=== PATIENT | male | born 1965 | race Caucasian/White ===

== ENCOUNTER 2020-09-08 11:27 | Inpatient (IN) | payer BC, SELFPAY ==
--- NOTE | 2020-09-06 20:10 | NUR ---
Opening notes Pt alert, awake, no s/s distress noted. IVF infusing at ordered rate R. FA no sign of infiltration. Call light within reach. Bed low, locked, siderails up x2. To monitor.
[~2020-09-08] VITALS: Ht 175.3 cm; Wt 91.6 kg
[2020-09-08 11:27] VITALS: BP_SYST 133
--- NOTE | 2020-09-08 11:27 | NUR ---
BROUGHT BACK TO BED #1 AND TRIAGED. REPORT GIVEN TO ILIA
--- NOTE | 2020-09-08 11:35 | NUR ---
Pt came to ER with L flank pain and kidney stone. Pt was referred by urgent care rates pain 12/27. Pt resting in [facility], awaiting MD.
--- NOTE | 2020-09-08 11:50 | NUR ---
ER at bedside examining patient.
[2020-09-08] MEDS ORDERED: NACL 0.9% 1,000 ML IV ONE (12:30)
[2020-09-08] MEDS ORDERED: KETOROLAC TROMETHAMINE 30 MG VIAL IVP ONE (12:30)
[2020-09-08] MEDS ORDERED: DIPHENHYDRAMINE INJ 50 MG/ML VIAL IVP ONE (12:30)
[2020-09-08] MEDS ORDERED: fentaNYL CITRATE/PF 100 MCG/2 ML AMP IVP ONE (12:30)
[2020-09-08 12:49] LABS: BILIRUBIN,URINE NEGATIVE (NEGATIVE); BLOOD, URINE 2+ (NEGATIVE); CLARITY/URINE CLEAR (CLEAR); COLOR,URINE YELLOW (YELLOW); GLUCOSE,URINE NEGATIVE (NEGATIVE); KETONES,URINE 1+ (NEGATIVE); LEUKOCYTE ESTERASE ,URINE NEGATIVE (NEGATIVE); NITRITE, URINE NEGATIVE (NEGATIVE); PROTEIN URINE NEGATIVE (NEGATIVE); UROBILINOGEN,URINE 0.2 (0.2-1.0)
--- NOTE | 2020-09-08 13:00 | NUR ---
Pt resting in [facility], good response to medication
[2020-09-08 13:02] LABS: BASOPHILS # (AUTO) 0.1 K/uL (0.0-0.2); BASOPHILS % (AUTO) 0.6 % (0.0-2.0); EOSINOPHILS # (AUTO) 0.1 K/uL (0.0-0.4); EOSINOPHILS % (AUTO) 0.5 % (0.0-4.0); HEMATOCRIT 42.6 % (36-54); HEMOGLOBIN 14.8 g/dL (14.0-18.0); LYMPHOCYTES # (AUTO) 1.3 K/uL (1.0-5.5); LYMPHOCYTES % (AUTO) 9.3 % (20.5-51.5); MEAN CORPUSCULAR HEMOGLOBIN 31 pg (27-31); MEAN CORPUSCULAR HGB CONC 35 % (32-36); MEAN CORPUSCULAR VOLUME 91 fL (79.0-98.0); MONOCYTES % (AUTO) 6.8 % (1.7-9.3); NEUTROPHILS % (AUTO) 82.8 % (40.0-70.0); PLATELET COUNT (AUTO) 272 K/uL (130-430); RED BLOOD CELL COUNT(AUTO) 4.71 MIL/uL (4.2-6.2); RED CELL DISTRIBUTION WIDTH 13.3 % (9.0-15.0); WHITE BLOOD COUNT (AUTO) 14.5 K/uL (4.8-10.8)
[2020-09-08 13:13] LABS: BACTERIA,URINE None Seen /HPF (None Seen); WBC,URINE 0-3 /HPF (0-3)
[2020-09-08 13:30] LABS: CALCIUM 9.1 mg/dL (8.4-11.0); CREATININE 1.64 mg/dL (0.55-1.30); POTASSIUM 4.2 mmol/L (3.5-5.1)
[2020-09-08 13:35] LABS: ALBUMIN 3.6 g/dL (3.4-4.8); TOTAL BILIRUBIN 0.6 mg/dL (0.0-1.0)
--- NOTE | 2020-09-08 14:09 | NUR ---
Pt asleep, VSS
--- NOTE | 2020-09-08 15:30 | NUR ---
Admit orders received from Dr. Hurtado, pt to go to Med-surg, Charge nurse Jessica, gave bed assignment 130A, once Covid result received.
[2020-09-08] MEDS ORDERED: HYDR-3917 PO (15:39)
[2020-09-08] MEDS ORDERED: IBUP-1970 PO (15:39)
[2020-09-08] MEDS ORDERED: ONDA4TAB5 PO (15:39)
[2020-09-08] MEDS ORDERED: TAMS-11 PO (15:39)
--- NOTE | 2020-09-08 15:43 | NUR ---
patient states he is full code
[2020-09-08] MEDS ORDERED: ACETAMINOPHEN 325 MG TABLET PO PRN (15:45)
[2020-09-08] MEDS ORDERED: ONDANSETRON HCL 4 MG/2 ML VIAL IVP PRN (15:45)
[2020-09-08] MEDS ORDERED: fentaNYL CITRATE/PF 100 MCG/2 ML AMP IVP PRN (15:45)
[2020-09-08] MEDS ORDERED: METOCLOPRAMIDE HCL 10 MG/2 ML VIAL IVP PRN (15:45)
--- NOTE | 2020-09-08 15:45 | NUR ---
Medication reconciliation completed with information provided by patient. Any prior medication reconciliation on file was reviewed and corrected.
--- NOTE | 2020-09-08 15:55 | NUR ---
Belongings list completed.
--- NOTE | 2020-09-08 16:13 | NUR ---
Transfer to [facility]. IV present no sign or symptom of infiltration.
--- NOTE | 2020-09-08 16:30 | NUR ---
ADMISSION NOTE Received patient from ER via gurpreet, received report from Erica HEATON. Patient admitted with diagnosis of Renal Colic. Patient oriented to hospital routine, call light, toileting and safety-patient verbalized understanding.
[2020-09-08 16:47] VITALS: BP_SYST 145
--- NOTE | 2020-09-08 17:00 | NUR ---
CONSULT UROLOGY RENAL COLIC JOVANNI PEREZ [phone] S/W [place] OFFICE
[2020-09-08] MEDS: cefTRIAXone 1 GM IVPB PREMIX 50 ML IV SCH (17:55)
[2020-09-08] MEDS: NACL 0.9% 1,000 ML IV SCH (17:55)
--- NOTE | 2020-09-08 19:25 | NUR ---
REPORT RECEIVED FROM DAY SHIFT NURSE.
[2020-09-08 20:00] VITALS: BP_SYST 140
--- NOTE | 2020-09-08 22:35 | NUR ---
REPORT GIVEN TO NURSE DOUGLASS FOR CONTINUITY OF PT'S NURSING CARE. PT'S HOME MEDICATIONS GIVEN TO NURSE DOUGLASS TO DELIVER TO PHARMACY IN AM.
--- NOTE | 2020-09-08 22:46 | NUR ---
Rounds Report received from Baldo Temple. Pt asleep, no s/s distress noted. Call light wthin reach. Bed low, locked, siderails up x3. To monitor.
[2020-09-09 00:27] VITALS: BP_SYST 137
--- NOTE | 2020-09-09 02:00 | NUR ---
Rounds Pt asleep, easily awakens. No c/o pain. New IV bag hang at ordered rate, no s/s infiltration. Call light within reach. Safety maintained. To monitor.
[2020-09-09] MEDS: NACL 0.9% 1,000 ML IV SCH ×5 (02:07→21:31)
--- NOTE | 2020-09-09 06:00 | NUR ---
Closing notes Pt asleep, easily awakens. No c/o pain. IVF infusing at ordered rate, no s/s infiltration. Pt on full liquid diet and requested some jello and juice. Call light within reach. Safety maintained. To endorse to AM nurse.
[2020-09-09 06:31] LABS: BASOPHILS % (AUTO) 0.2 % (0.0-2.0); EOSINOPHILS # (AUTO) 0.2 K/uL (0.0-0.4); EOSINOPHILS % (AUTO) 2.1 % (0.0-4.0); HEMATOCRIT 40.1 % (36-54); HEMOGLOBIN 13.9 g/dL (14.0-18.0); LYMPHOCYTES # (AUTO) 1.5 K/uL (1.0-5.5); LYMPHOCYTES % (AUTO) 15.8 % (20.5-51.5); MEAN CORPUSCULAR HEMOGLOBIN 32 pg (27-31); MEAN CORPUSCULAR HGB CONC 35 % (32-36); MEAN CORPUSCULAR VOLUME 92 fL (79.0-98.0); MONOCYTES # (AUTO) 0.8 K/uL (0.0-1.0); MONOCYTES % (AUTO) 8.1 % (1.7-9.3); NEUTROPHILS # (AUTO) 7.2 K/uL (1.8-7.7); NEUTROPHILS % (AUTO) 73.8 % (40.0-70.0); PLATELET COUNT (AUTO) 242 K/uL (130-430); RED BLOOD CELL COUNT(AUTO) 4.38 MIL/uL (4.2-6.2); RED CELL DISTRIBUTION WIDTH 13.1 % (9.0-15.0); WHITE BLOOD COUNT (AUTO) 9.7 K/uL (4.8-10.8)
[2020-09-09 06:35] LABS: ALBUMIN 2.5 g/dL (3.4-4.8); CALCIUM 8.1 mg/dL (8.4-11.0); CREATININE 1.7 mg/dL (0.55-1.30); POTASSIUM 4.2 mmol/L (3.5-5.1); TOTAL BILIRUBIN 0.3 mg/dL (0.0-1.0)
[2020-09-09] MEDS: TAMSULOSIN HCL 0.4 MG CAP PO SCH (08:26)
[2020-09-09 12:22] VITALS: BP_SYST 152
[2020-09-09] MEDS: fentaNYL CITRATE/PF 100 MCG/2 ML AMP IVP PRN ×3 (12:24→21:30)
[2020-09-09] MEDS: cefTRIAXone 1 GM IVPB PREMIX 50 ML IV SCH (15:47)
[2020-09-09 16:05] VITALS: BP_SYST 145
[2020-09-09 20:00] VITALS: BP_SYST 136
--- NOTE | 2020-09-09 20:30 | NUR ---
Opening notes Pt AAOx4, VSS, afebrile. Pt doesn't want to sign consent for Cystoscopy at this time because he states he's waiting for the insurance. Informed pt he will need to be Nothing by mouth before surgery, pt verbalized understanding. IVF infusing at ordered rate R FA 22G no s/s infiltration. Will continue to strain urine.
--- NOTE | 2020-09-09 22:38 | NUR ---
Called MD Called and spoke w/ Dr. Parham to report Pt still c/o "squeezing" L abd pain that pt stated moved from his L. testicle and c/o not being able to sleep. Received order for Toradol 30mg IVP once and Brian. Will carry out.
--- NOTE | 2020-09-09 22:42 | NUR ---
HIGH ALERT NOTE: Called Dr. Parham back at [phone] identified within the medical roster to verify physician authenticity. Brian Watersmg.
[2020-09-09] MEDS ORDERED: KETOROLAC TROMETHAMINE 30 MG VIAL IVP ONE (22:45)
[2020-09-09] MEDS ORDERED: ZOLPIDEM TARTRATE 5 MG TABLET PO ONE (22:45)
[2020-09-09] MEDS ORDERED: KETOROLAC TROMETHAMINE 30 MG VIAL ONE (23:01)
--- NOTE | 2020-09-09 23:03 | NUR ---
Pain Pt still c/o severe pain/tenderness L. abd. Toradol 30mg IVP x1 administered. Will continue to monitor.
[2020-09-10 00:05] VITALS: BP_SYST 155
--- NOTE | 2020-09-10 03:10 | NUR ---
Rounds Pt asleep, respirations even and unlabored. IVF infusing at ordered rate. To monitor. Addendum: 09/10/20 at 0344 by Loren Xiao RN Straining urine, no stones passed or noted.
[2020-09-10] MEDS: NACL 0.9% 1,000 ML IV SCH ×2 (05:00→08:52)
--- NOTE | 2020-09-10 06:17 | NUR ---
Closing notes Pt asleep, no c/o pain. IVF infusing at ordered rate, no s/s infiltration. Call light within reach. Safety maintained. To endorse to AM nurse
--- NOTE | 2020-09-10 06:50 | NUR ---
Follow up Pt states he wants to know if insurance is approved first before signing consent this AM. Will endorse to AM nurse to f/u w/ Dr Shaffer.
--- NOTE | 2020-09-10 07:40 | NUR ---
OPENING NOTES PATIENT AAOX 4. LUNGS BILATERALLY CLEAR. ABDOMEN SOFT AND NON DISTENDED. VITALS SIGNS STABLE. AFEBRILE. HAS IV ACCESS ON THE RIGHT FOREARM #22. WITH NORMAL SALINE AT 150CC/HR INFUSING ON WELL. NO S/S OF PAIN NOR DISTRESS NOTED. BED LOW POSITION, ALARMED AND LOCKED. AMBULATORY. CALL LIGHTS WITHIN REACH. WILL CONTINUE TO MONITOR PATIENTS STATUS.
[2020-09-10 07:41] VITALS: BP_SYST 147
[2020-09-10] MEDS: TAMSULOSIN HCL 0.4 MG CAP PO SCH (08:52)
[2020-09-10 10:30] LABS: CALCIUM 8.8 mg/dL (8.4-11.0); CREATININE 1.68 mg/dL (0.55-1.30); POTASSIUM 4.4 mmol/L (3.5-5.1)
--- NOTE | 2020-09-10 10:30 | NUR ---
PAGED PAGED JOVANNI WOODY AT [phone] SPOKE WITH PADMINI.
[2020-09-10 10:31] LABS: BASOPHILS % (AUTO) 0.2 % (0.0-2.0); EOSINOPHILS # (AUTO) 0.1 K/uL (0.0-0.4); EOSINOPHILS % (AUTO) 1.2 % (0.0-4.0); HEMATOCRIT 39.2 % (36-54); HEMOGLOBIN 13.4 g/dL (14.0-18.0); LYMPHOCYTES # (AUTO) 1.3 K/uL (1.0-5.5); LYMPHOCYTES % (AUTO) 13.7 % (20.5-51.5); MEAN CORPUSCULAR HEMOGLOBIN 32 pg (27-31); MEAN CORPUSCULAR HGB CONC 34 % (32-36); MEAN CORPUSCULAR VOLUME 92 fL (79.0-98.0); MONOCYTES # (AUTO) 0.6 K/uL (0.0-1.0); MONOCYTES % (AUTO) 6.4 % (1.7-9.3); NEUTROPHILS # (AUTO) 7.5 K/uL (1.8-7.7); NEUTROPHILS % (AUTO) 78.5 % (40.0-70.0); PLATELET COUNT (AUTO) 250 K/uL (130-430); RED BLOOD CELL COUNT(AUTO) 4.26 MIL/uL (4.2-6.2); RED CELL DISTRIBUTION WIDTH 13.1 % (9.0-15.0); WHITE BLOOD COUNT (AUTO) 9.6 K/uL (4.8-10.8)
[2020-09-10 10:45] LABS: TOTAL BILIRUBIN 0.3 mg/dL (0.0-1.0)
--- NOTE | 2020-09-10 10:59 | NUR ---
consent signed dr cano made aware. possible procedure tomorrow.
[2020-09-10 12:49] VITALS: BP_SYST 150
--- NOTE | 2020-09-10 14:30 | NUR ---
RENAL ULTRASOUND DONE. AT THE BEDSIDE.
[2020-09-10 16:38] VITALS: BP_SYST 152
--- NOTE | 2020-09-10 18:00 | NUR ---
HAD NEW IV ACCESS ON THE LEFT AC #20 WITH SAME IV FLUIDS. INFORMED PATIENT NEEDS TO BE NPO POST MIDNITE FOR THE PROCEDURE.
--- NOTE | 2020-09-10 19:21 | NUR ---
ENDORSED TO RAJI HEATON.
--- NOTE | 2020-09-10 19:30 | NUR ---
OPENING NOTES PATIENT AAOX 4. HAS IV ACCESS ON THE LFA #20. WITH NORMAL SALINE AT 150CC/HR INFUSING ON WELL. NO S/S OF PAIN NOR DISTRESS NOTED. BED LOW POSITION, ALARMED AND LOCKED. AMBULATORY. CALL LIGHTS WITHIN REACH. WILL CONTINUE TO MONITOR PATIENTS STATUS.
[2020-09-10 20:03] LABS: PROTHROMBIN TIME 10.4 SECS (9.5-12.5)
--- NOTE | 2020-09-11 | NUR ---
RN ROUNDS PT VITAL SIGNS STABLE. WILL CTM
[2020-09-11] MEDS: NACL 0.9% 1,000 ML IV SCH ×4 (00:50→15:28)
[2020-09-11 01:26] VITALS: BP_SYST 129
--- NOTE | 2020-09-11 06:56 | NUR ---
CLOSING NOTES PATIENT AAOX 4. HAS IV ACCESS ON THE LFA #20. WITH NORMAL SALINE AT 150CC/HR INFUSING ON WELL. NO S/S OF PAIN NOR DISTRESS NOTED. BED LOW POSITION, ALARMED AND LOCKED. AMBULATORY. CALL LIGHTS WITHIN REACH. WILL CONTINUE TO MONITOR PATIENTS STATUS. PT IS AWARE SURGERY TO BE AT 1600. NPO AFTER 8AM. WILL ENDORSE TO DAYSHIFT RN
[2020-09-11 08:00] VITALS: BP_SYST 153
--- NOTE | 2020-09-11 08:00 | NUR ---
OPENING NOTE RECEIVED REPORT FROM NIGHT NURSE. PATIENT IS ALERT AND ORIENTED X 4. ON ROOM AIR AND TOLERATING WELL WITH NO SIGNS OF SHORTNESS OF BREATH NOTED. IV IS PATENT, INFUSING FLUIDS ORDERED. BED LOCKED AND IN LOWEST POSITION. NPO FOR PROCEDURE TODAY. CALL LIGHT WITHIN REACH. WILL CONTINUE TO MONITOR.
[2020-09-11] MEDS: TAMSULOSIN HCL 0.4 MG CAP PO SCH (08:44)
[2020-09-11 12:00] VITALS: BP_SYST 154
[2020-09-11] MEDS: cefTRIAXone 1 GM IVPB PREMIX 50 ML IV SCH ×2 (15:04→15:06)
[2020-09-11] MEDS ORDERED: LEVO500T89 PO (16:10)
--- NOTE | 2020-09-11 16:23 | NUR ---
PATIENT TAKEN TO OR IN STABLE CONDITION. WILL WAIT FOR RETURN TO UNIT.
[2020-09-11] MEDS ORDERED: METOCLOPRAMIDE HCL 10 MG/2 ML VIAL IVP PRN (17:15)
[2020-09-11] MEDS ORDERED: fentaNYL CITRATE/PF 100 MCG/2 ML AMP IVP PRN ×2 (17:15)
[2020-09-11] MEDS ORDERED: ONDANSETRON HCL 4 MG/2 ML VIAL IVP PRN (17:15)
--- NOTE | 2020-09-11 17:19 | NUR ---
MD ROUNDS SPOKE TO DR. HUDSON. SAID IT WAS OK FOR PATIENT TO EAT REGULAR DIET AFTER PROCEDURE. ALSO CLEARED PATIENT FOR DISCHARGE AFTER PROCEDURE ONCE STABLE. THE PATIENT PREVIOUSLY INFORMED ME THAT HE DOES NOT HAVE TRANSPORTATION FROM THE HOSPITAL SINCE HE DROVE HIMSELF TO THE ER. WILL WAIT FOR PATIENT TO RETURN TO UNIT.
[2020-09-11 17:31] VITALS: BP_SYST 154
--- NOTE | 2020-09-11 18:45 | NUR ---
PATIENT RETURNED FROM PACU/ CLOSING NOTE PATIENT IN STABLE CONDITION. VITAL SIGNS ARE STABLE. ON ROOM AIR AND TOLERATING WELL. IV IS PATENT, INFUSING FLUIDS ORDERED. WILL ENDORSE TO NIGHT NURSE.
--- NOTE | 2020-09-11 19:35 | NUR ---
OPENING NOTES PATIENT AAOX 4. HAS IV ACCESS ON THE LFA #20. WITH NORMAL SALINE AT 150CC/HR INFUSING ON WELL. NO S/S OF PAIN NOR DISTRESS NOTED. BED LOW POSITION, ALARMED AND LOCKED. POST OP VITALS IN PLACE. CALL LIGHTS WITHIN REACH. WILL CONTINUE TO MONITOR PATIENTS STATUS.
[2020-09-11 20:00] VITALS: BP_SYST 141
--- NOTE | 2020-09-11 23:15 | NUR ---
RN ROUNDS PER PT HE HASNT PEED SINCE SURGERY AND HE FEELS PAIN LIKE IT IS FULL. UPON BLADDER SCANNING I FOUND>999CC URINE. PT STATES HE CANNOT PEE. WILL PAGE DR HUDSON
--- NOTE | 2020-09-11 23:17 | NUR ---
SPOKE TO DR HUDSON REGARDING PT RETAINING URINE PER DR HUDSON INSERT LING CATHETER, AND OK TO ADMIN FLOMAX RIGHT NOW ONE TIME ORDER SINCE IT WAS HELD TODAY BECAUSE PT WAS NPO STATUS. ALSO STATED HOLD D/C UNTIL TOMORROW DUE TO PT STATUS NOT BEING ABLE TO GO HOME TODAY
[2020-09-11] MEDS ORDERED: TAMSULOSIN HCL 0.4 MG CAP PO ONE (23:30)
--- NOTE | 2020-09-11 23:35 | NUR ---
LING CATH: # 16 FR Ling catheter with 10 cc bulb inserted with use of sterile technique. Bulb inflated with 10 cc sterile water. Immediate return of 1000 cc BLOOD-TINGED urine noted. Bedside drainage bag placed below level of bladder. Urine sample collected and sent to lab. Pt tolerated procedure.
[2020-09-12 00:34] LABS: BILIRUBIN,URINE 1+ (NEGATIVE); BLOOD, URINE 3+ (NEGATIVE); CLARITY/URINE SL CLOUDY (CLEAR); COLOR,URINE ORANGE (YELLOW); GLUCOSE,URINE NEGATIVE (NEGATIVE); KETONES,URINE NEGATIVE (NEGATIVE); LEUKOCYTE ESTERASE ,URINE TRACE (NEGATIVE); NITRITE, URINE POSITIVE (NEGATIVE); PH,URINE 5.5 (5.0-8.0); PROTEIN URINE 2+ (NEGATIVE); UROBILINOGEN,URINE 0.2 (0.2-1.0)
[2020-09-12 00:39] VITALS: BP_SYST 142
[2020-09-12 00:41] LABS: BACTERIA,URINE MODERATE /HPF (None Seen); RBC,URINE >100 /HPF (0-3)
[2020-09-12] MEDS: NACL 0.9% 1,000 ML IV SCH ×2 (00:56→06:25)
--- NOTE | 2020-09-12 03:28 | NUR ---
PT AMBULATED TO BATHROOM
--- NOTE | 2020-09-12 03:50 | NUR ---
URINE STRAINED , NO RENAL STONES FOUND
--- NOTE | 2020-09-12 06:27 | NUR ---
CLOSING NOTES PATIENT AAOX 4. HAS IV ACCESS ON THE LFA #20 NO INFILTRATION. LING DRAINING BLOODTINGED URINE TO GRAVITY. PT AMBULATED TO RESTROOM. NO S/S OF PAIN NOR DISTRESS NOTED. CALL LIGHTS WITHIN REACH. WILL CONTINUE TO MONITOR UNTIL CARE ENDORSED TO DAYSHIFT RN.
--- NOTE | 2020-09-12 07:35 | NUR ---
AM ROUNDS: PATIENT AWAKE,ALERT AND ORIENTED X4,LYING IN THE BED. IV FLUIDS RUNNING AT LEFT FOREARM INTACT. CALL LIGHT WITH IN REACH. BED LOCKED AT LOWEST POSITION. LING DRAINING TO LARGE AMOUNT OF PINK TINGED URINE. NOT IN ANY DISTRESS.
[2020-09-12 08:10] VITALS: BP_SYST 144
--- NOTE | 2020-09-12 08:30 | NUR ---
DC LING: DR HUDSON IN THE ROOM AND DC LING. WITH ADDITIONAL ORDERS VOID TRIAL,THEN CHECK BLADDER SCAN IF >200ML URINE,RESTART NEW LING.DC HOME AND F/U WITH UROLOGIST IN 1 WEEK. Addendum: 09/12/20 at 1110 by Garima Salguero RN ADD NOTES: VOID TRIAL,DO BLADDER SCAN TO ENSURE POST VOID RESIDUALS <200ML.IF WITH HIGHER RESIDUALS,RESTART NEW LING.DC HOME IF STABLE.
[2020-09-12] MEDS: TAMSULOSIN HCL 0.4 MG CAP PO SCH (09:13)
--- NOTE | 2020-09-12 12:00 | NUR ---
Post void trial: Patient voided 800ml pink tinged after dc madrigal. Bladder scanned and 158mls residuals noted and zero in other areas.
[2020-09-12 13:26] VITALS: BP_SYST 144
[2020-09-12 13:50] VITALS: BP_SYST 144
--- NOTE | 2020-09-12 14:25 | NUR ---
D/C Patient Patient given medication reconciliation form and D/C instructions,f/u with Urologist in 1 week. Exit Care provided. Patient verbalized understanding. MD discussed with patient the results and treatment provided. Ambulatory with steady gait for discharge to home. Patient in stable condition, ID band removed. IV catheter removed, intact and dressing applied, no active bleeding. Rx of Levaquin and flomax given. Patient educated on pain management. All belongings sent with patient.
== END 2020-09-12 14:25 | disposition home or self-care (01) | DRG 661 ==
LOC: SED 11:27 → SMU 15:27
PROVIDERS: ADMIT Internal Medicine Hospice and Palliative Medicine; ATTEND Internal Medicine Hospice and Palliative Medicine
PROC: BT1F1ZZ Fluoroscopy of Left Kidney, Ureter and Bladder using Low Osmolar Contrast (ICD-10-PCS; 2020-09-11)
PROC: 0T778DZ Dilation of Left Ureter with Intraluminal Device, Via Natural or Artificial Opening Endoscopic (ICD-10-PCS; principal; 2020-09-11 16:30)
DX: N13.2 Hydronephrosis with renal and ureteral calculous obstruction (principal); D72.829 Elevated white blood cell count, unspecified; N17.9 Acute kidney failure, unspecified; R33.0 Drug induced retention of urine; Z20.822 Contact with and (suspected) exposure to COVID-19; T41.45XA Adverse effect of unspecified anesthetic, initial encounter; Z79.899 Other long term (current) drug therapy; Z88.6 Allergy status to analgesic agent; Y92.89 Other specified places as the place of occurrence of the external cause
CPT/HCPCS: 36415; 71045; 76000; 76376; 76770; 80053; 81000; 85025; 85610-TC; 85730-TC; 87081; 87086; 93005; 96374; 96375; 99285; J0696; J1200; J1885; J3010; Q9967